=== PATIENT | male | born 1950 | race Caucasian/White ===

== ENCOUNTER → 2017-04-28 | Outpatient (CLI) | payer BC ==
--- NOTE | 2017-04-28 10:49 | XR ---
EXAMINATION TYPE: XR Hip Complete RT DATE OF EXAM: 04/28/2017 COMPARISON: NONE HISTORY: Pain right hip previous prosthesis placement TECHNIQUE: 2 view right hip FINDINGS: There is a right hip prosthesis with acetabular component. No acute fractures are evident. Joint appears normally oriented. No suspicious lucency adjacent to the prosthesis is evident. IMPRESSION: 1. No acute osseous abnormality right hip
== END | disposition home or self-care (01) ==
LOC: RADXRMAIN 09:36
PROVIDERS: ATTEND Physician Assistant
DX: M25.551 Pain in right hip (principal)
CPT/HCPCS: 73502

== ENCOUNTER → 2019-03-01 | Outpatient (CLI) | payer BC ==
--- NOTE | 2019-03-01 10:54 | ECHOF ---
Referral Reason:R00.2 abnormal heart beat MEASUREMENTS -------- HEIGHT: 188.0 cm WEIGHT: 108.9 kg BP: RVIDd: 3.6 cm (< 3.3) IVSd: 1.1 cm (0.6 - 1.1) LVIDd: 4.9 cm (3.9 - 5.3) LVPWd: 1.0 cm (0.6 - 1.1) IVSs: 1.4 cm LVIDs: 4.1 cm LVPWs: 0.9 cm LA Diam: 4.2 cm (2.7 - 3.8) LAESV Index (A-L): 31.96 ml/m Ao Diam: 2.8 cm (2.0 - 3.7) AV Cusp: 2.1 cm (1.5 - 2.6) LA Diam: 3.7 cm (2.7 - 3.8) MV EXCURSION: 24.642 mm (> 18.000) MV EF SLOPE: 114 mm/s (70 - 150) EPSS: 0.4 cm MV E Kevin: 0.64 m/s MV DecT: 245 ms MV A Kevin: 0.51 m/s MV E/A Ratio: 1.26 RAP: 5.00 mmHg RVSP: 29.11 mmHg FINDINGS -------- Sinus rhythm. This was a technically adequate study. The left ventricular size is normal. There is mild concentric left ventricular hypertrophy. Overa ll left ventricular systolic function is normal with, an EF between 55 - 60 %. The diastolic fillin g pattern is normal for the age of the patient {E/E'}. The right ventricle is normal in size. LA is midly dilated 29-33ml/m2. The right atrium is mildly enlarged. Aortic valve is trileaflet and is mildly thickened. There is no evidence of aortic regurgitation. The mitral valve leaflets are mildly thickened. Mild mitral regurgitation is present. Mild tricuspid regurgitation present. Right ventricular systolic pressure is normal at < 35 mmHg. The right ventricular systolic pressure, as measured by Doppler, is 29.11mmHg. Trace/mild (physiologic) pulmonic regurgitation. The aortic root size is normal. There is no pericardial effusion. CONCLUSIONS -------- 1. Sinus rhythm. 2. There is mild concentric left ventricular hypertrophy. 3. Overall left ventricular systolic function is normal with, an EF between 55 - 60 %. 4. The diastolic filling pattern is normal for the age of the patient {E/E'} 5. LA is midly dilated 29-33ml/m2. 6. The right atrium is mildly enlarged. 7. Aortic valve is trileaflet and is mildly thickened. 8. Mild mitral regurgitation is present. 9. Mild tricuspid regurgitation present. 10. Right ventricular systolic pressure is normal at < 35 mmHg. 11. Trace/mild (physiologic) pulmonic regurgitation. 12. There is no pericardial effusion. MINERAL TECHNOLOGIST: Mica Morales RDCS
--- NOTE | 2019-03-02 05:00 | EST ---
EXERCISE STRESS DATE OF SERVICE: 03/01/2019 AGE: 68 SEX: Male HT: 75" WT: 240 pounds PROTOCOL: Elia STAGE: III DURATION OF EXERCISE: 8 minutes 32 seconds HEART RATE REST: 97 BLOOD PRESSURE REST: 174/99 MAXIMUM HEART RATE ACHIEVED: 128 MAXIMUM BLOOD PRESSURE: 215/107 85% MPHR: 128 100% MPHR: 150 METS: 8.1 INDICATIONS: Abnormal heart beat. CLINICAL INFORMATION: Baseline rhythm is sinus mechanism, rate 59, right axis deviation, poor R progression. Baseline blood pressure 146/84 mmHg. Patient exercised on Elia protocol for 8 minute 32 seconds reaching peak rate of 128 beats per minute which is equal to 85% maximum predicted heart rate. Peak blood pressure 215/107 mmHg. Test was terminated secondary to fatigue. There was no chest pain. Electrocardiograph monitoring revealed rare PACs. There was no evidence of diagnostic ischemic ST deviation. CONCLUSION: 1. Good exercise tolerance with rare PACS. 2. Normal electrocardiograph response to exercise with no evidence of exercise induced ischemia. MMODL / IJN: [id number] /
== END | disposition home or self-care (01) ==
LOC: RADNMMAIN 08:08
PROVIDERS: ATTEND Internal Medicine
DX: I08.3 Combined rheumatic disorders of mitral, aortic and tricuspid valves (principal); R00.8 Other abnormalities of heart beat
CPT/HCPCS: 93017; 93306

== ENCOUNTER → 2019-09-16 | Outpatient (CLI) | payer BC ==
--- NOTE | 2019-09-16 09:08 | US ---
EXAMINATION TYPE: US liver DATE OF EXAM: 09/16/2019 COMPARISON: NONE CLINICAL HISTORY: R16 Hepatomegaly. MD felt enlarged liver on physical exam. No complaints by patient . EXAM MEASUREMENTS: Liver Length: 17.1 cm Gallbladder Wall: 0.1 cm CBD: 0.3 cm Right Kidney: 13.5 x 5.9 x 4.7 cm Pancreas: Obscured by bowel gas Liver: Increased attenuation Gallbladder: wnl, with fold Evidence for sonographic Nair's sign: No CBD: wnl Right Kidney: No hydronephrosis or masses seen IMPRESSION: Exam is limited. Findings may be indicative of hepatic steatosis, measurement obtained by the technologist may under represent size, there may be hepatic enlargement
== END | disposition home or self-care (01) ==
LOC: RADUSWWP 07:04
PROVIDERS: ATTEND Internal Medicine
DX: R16.0 Hepatomegaly, not elsewhere classified (principal)
CPT/HCPCS: 76705

== ENCOUNTER → 2021-11-02 | Outpatient (CLI) | payer MEDICAID ==
[~2021-11-02] MED LIST: BEBTELOVIMAB (EUA) 175 MG/2 ML VIAL IV ONE; SODIUM CHLORIDE 0.9% 500 ML 500 ML in EMPTY BAG 1 BAG IV PRN
[2021-11-02 12:42] VITALS: BP 168/90; PULSE 67; RESP 16; TEMP 97.6
== END ==
LOC: PROCWHC3 12:35
PROVIDERS: ATTEND Nurse Practitioner Adult Health
DX: U07.1 COVID-19 (principal); Q89.01 Asplenia (congenital); Z88.0 Allergy status to penicillin
CPT/HCPCS: Q0222; M0222

== ENCOUNTER → 2022-07-14 | Outpatient (CLI) | payer MEDICAID ==
[2022-07-14 15:03] LABS: ALT 38 U/L (10-49); AST 35 U/L (14-35); LDL Cholesterol,Calculated 43.5 mg/dL (0.0-131.0)
== END | disposition home or self-care (01) ==
LOC: LABWHC1 08:08
PROVIDERS: ATTEND Internal Medicine Cardiovascular Disease
DX: E78.2 Mixed hyperlipidemia (principal)
CPT/HCPCS: 36415; 80061; 84450; 84460

== ENCOUNTER 2022-08-30 16:55 | Emergency (ER) | payer MEDICAID ==
[2022-08-30 17:02] VITALS: BP 153/86; PULSE 67; RESP 18; TEMP 97.9
--- NOTE | 2022-08-30 20:03 | US ---
EXAMINATION TYPE: US lower ext pseudo artery RT DATE OF EXAM: 08/30/2022 COMPARISON: NONE CLINICAL INDICATION: Male, 72 years old with history of s/p cath 05/2 r/o pseudoaneurysm RLE; Pain. No palpable or discoloration. EXAM PERFORMED: Grayscale and color Doppler duplex imaging performed of the groin, post cardiac pao ter to assess for pseudoaneurysm. SIDE PERFORMED: Right Color and Waveform Doppler performed to assess for the presence of pseudoaneurysm; Is there ultrasound evidence of a pseudoaneurysm: No Is there evidence of AV shunting: No Is there a fluid collection present: No Case was discussed the technical training instructor. No definite pseudoaneurysm identified. Images document the ar terial system as well as portions of the venous system. Case was discussed with the emergency room PA by Dr. Charles at the time of interpretation. In the ab sence of clinically suspicious findings, patient can return in the morning for rescanning and documen tation. This may be useful to have a radiologist present at the time of scanning. IMPRESSION: 1. No definite pseudoaneurysm. 2. Recommend follow-up scan in the morning to reevaluate to confirm and document no pseudoaneurysm pr esent.
--- NOTE | 2022-08-30 20:17 | ED ---
General Adult HPI - General Chief complaint: Extremity Injury, Lower Stated complaint: pain in lower extremities Time Seen by Provider: 08/30/22 18:01 Source: family Mode of arrival: ambulatory Limitations: no limitations - History of Present Illness Initial comments: 72-year-old male with past medical history significant for S/PE cardiac catheterization on 07/19 presenting to the ED with a chief complaint of right groin pain. Patient states over the past few days has had intermittent pain to the right groin. Patient denies any known injury. She also notes history of sciatica and notes pain in the right groin is somewhat consistent with history of this. Denies chest pain shortness breath. No other complaints. - Related Data Previous Rx's Medication Instructions Recorded Aspirin 81 mg PO DAILY #90 tab 07/01/22 Atorvastatin [Lipitor] 80 mg PO HS #90 tab 07/01/22 Clopidogrel [Plavix] 75 mg PO DAILY #90 tab 07/01/22 Losartan [Cozaar] 25 mg PO HS #90 tab 07/01/22 Metoprolol Tartrate [Lopressor] 25 mg PO BID #180 tab 07/01/22 Nitroglycerin Sl Tabs [Nitrostat] 0.4 mg SUBLINGUAL Q5M PRN #100 tab 07/01/22 Allergies Allergy/AdvReac Type Severity Reaction Status Date / Time Penicillins Allergy Unknown Verified 08/30/22 16:57 Review of Systems ROS Statement: Those systems with pertinent positive or pertinent negative responses have been documented in the HPI. ROS Other: All systems not noted in ROS Statement are negative. Past Medical History Past Medical History: Hyperlipidemia, Hypertension, Myocardial Infarction ([place]) Additional Past Medical History / Comment(s): back pain History of Any Multi-Drug Resistant Organisms: None Reported Past Surgical History: Heart Catheterization With Stent, Joint Replacement, Orthopedic Surgery Additional Past Surgical History / Comment(s): spleen removed Past Anesthesia/Blood Transfusion Reactions: No Reported Reaction Past Psychological History: No Psychological Hx Reported Smoking Status: Never smoker Past Alcohol Use History: Occasional Past Drug Use History: None Reported General Exam Limitations: no limitations General appearance: alert, in no apparent distress Head exam: Present: atraumatic, normocephalic Eye exam: Present: normal appearance Respiratory exam: Present: normal lung sounds bilaterally Cardiovascular Exam: Present: regular rate, normal rhythm GI/Abdominal exam: Present: soft exam: Present: normal inspection, other (Catheterization site shows no redness, warmth, erythema. No tenderness to palpation. No significant swe lling.) Neurological exam: Present: alert, oriented X3 Psychiatric exam: Present: normal affect, normal mood Skin exam: Present: warm, dry Course Vital Signs 08/30/22 16:58 Temperature 97.9 F Pulse Rate 67 Respiratory 18 Rate Blood Pressure 153/86 O2 Sat by Pulse 96 Oximetry Medical Decision Making - Medical Decision Making Was pt. sent in by a medical professional or institution (DELFIN Moreno, SHARED SERVICES REPRESENTATIVE, urgent care, hospital, or shelter...) When possible be specific @ -No Did you speak to anyone other than the patient for history (EMS, parent, family, police, friend...)? What history was obtained from this source @ -No Did you review nursing and triage notes (agree or disagree)? Why? @ -I reviewed and agree with nursing and triage notes Were old charts reviewed (outside hosp., previous admission, EMS record, old EKG, old radiological studies, urgent care reports/EKG's, shelter records)? Report findings @ -Review of previous chart showed cath on 07/19 Differential Diagnosis (chest pain, altered mental status, abdominal pain women, abdominal pain men, vaginal bleeding, weakness, fever, dyspnea, syncope, headache, dizziness, GI bleed, back pain, seizure, CVA, palpatations, mental health, musculoskeletal)? @ -And echo, pseudoaneurysm. This is not meant to be an all-inclusive list EKG interpreted by me (3pts min.). @ -None X-rays interpreted by me (1pt min.). @ -None done CT interpreted by me (1pt min.). @ -None done U/S interpreted by me (1pt. min.). @ -Ultrasound showed no evidence of pseudoaneurysm. What testing was considered but not performed or refused? (CT, X-rays, U/S, labs)? Why? @ -None What meds were considered but not given or refused? Why? @ -None Did you discuss the management of the patient with other professionals (professionals i.e. DELFIN Moreno, SHARED SERVICES REPRESENTATIVE, lab, RT, psych nurse, social media editor, assembler flexible leads, teacher, disability hearing officer, shoe parts caser)? Give summary @ -No Was smoking cessation discussed for >3mins.? @ -No Was critical care preformed (if so, how long)? @ -No Were there social determinants of health that impacted care today? How? (Homelessness, low income, unemployed, alcoholism, drug addiction, transportation, low edu. Level, literacy, decrease access to med. care, nursing home, rehab)? @ -No Was there de-escalation of care discussed even if they declined (Discuss DNR or withdrawal of care, Hospice)? DNR status @ -No What co-morbidities impacted this encounter? (DM, HTN, Smoking, COPD, CAD, Cancer, CVA, ARF, Chemo, Hep., AIDS, mental health diagnosis, sleep apnea, morbid obesity)? @ -History of [place] S/P cath Was patient admitted / discharged? Hospital course, mention meds given and route, prescriptions, significant lab abnormalities, going to OR and other pertinent info. @ -Discharge. Spoke with of radiology who advises at this time poor image quality however unlikely pseudoaneurysm. He recommends repeat imaging in the morning. At this time pain is well-controlled. Patient discharged home with prescription for ultrasound to follow with cardiology. Stress return precautions with patient verbalizes agreement. Undiagnosed new problem with uncertain prognosis? @ -No Drug Therapy requiring intensive monitoring for toxicity (Heparin, Nitro, Insulin, Cardizem)? @ -No Were any procedures done? @ -No Diagnosis/symptom? @ -Right groin pain Acute, or Chronic, or Acute on Chronic? @ -Acute Uncomplicated (without systemic symptoms) or Complicated (systemic symptoms)? @ -Uncomplicated Side effects of treatment? @ -No Exacerbation, Progression, or Severe Exacerbation? @ -No Poses a threat to life or bodily function? How? (Chest pain, [place], [place], pneumonia, PE, COPD, DKA, ARF, appy, cholecystitis, CVA, Diverticulitis, Homicidal, Suicidal, threat to staff... and all critical care pts) @ -No Disposition Clinical Impression: Groin pain Disposition: HOME SELF-CARE Condition: Good Additional Instructions: Please return to the Emergency Department if symptoms worsen or any other concerns. Is patient prescribed a controlled substance at d/c from ED?: No Referrals: Werner Michelle MD [Primary Care Provider] - 1-2 days Time of Disposition: 20:18
== END 2022-08-30 20:19 | disposition home or self-care (01) ==
LOC: EC 16:55
DX: R10.30 Lower abdominal pain, unspecified (principal); M79.604 Pain in right leg; E78.5 Hyperlipidemia, unspecified; I10 Essential (primary) hypertension; I25.2 Old myocardial infarction; Z88.0 Allergy status to penicillin; Z79.82 Long term (current) use of aspirin; Z79.899 Other long term (current) drug therapy; Z79.02 Long term (current) use of antithrombotics/antiplatelets
CPT/HCPCS: 93975; 99284

== ENCOUNTER → 2022-08-31 | Outpatient (CLI) | payer MEDICAID ==
--- NOTE | 2022-08-31 10:49 | US ---
EXAMINATION TYPE: US lower ext pseudo artery RT DATE OF EXAM: 08/31/2022 COMPARISON: US 08/30/22 CLINICAL INDICATION: Male, 72 years old with history of I72.9 ANEURYSM OF UNSPECIFIED SITE; Patient h ad heart cath 06/29/2022. Patient had some pain in right groin yesterday. EXAM PERFORMED: Grayscale and color Doppler duplex imaging performed of the groin, post cardiac pao ter to assess for pseudoaneurysm. SIDE PERFORMED: Right Color and Waveform Doppler performed to assess for the presence of pseudoaneurysm; Is there ultrasound evidence of a pseudoaneurysm: No evidence of pseudoaneurysm. Is there evidence of AV shunting: No Is there a fluid collection present: No IMPRESSION: No evidence of pseudoaneurysm at this time.
== END | disposition home or self-care (01) ==
LOC: LABWHC1 09:29
PROVIDERS: ATTEND Student in an Organized Health Care Education/Training Program
DX: I72.8 Aneurysm of other specified arteries (principal)
CPT/HCPCS: 93975

== ENCOUNTER 2023-01-29 02:37 | Emergency (ER) | payer MEDICAID ==
[2023-01-29 03:18] LABS: Basophils % (A) 0 %; Eosinophils % (A) 0 %; HCT 47.7 % (39.0-53.0); HGB 15.5 gm/dL (13.0-17.5); Lymphocytes # (A) 1.2 k/uL (1.0-4.8); Lymphocytes % (A) 11 %; MCH 31.7 pg (25.0-35.0); MCHC 32.5 g/dL (31.0-37.0); MCV 97.6 fL (80.0-100.0); Mean Platelet Volume 7.9; Monocytes # (A) 0.4 k/uL (0-1.0); Monocytes % (A) 3 %; Neutrophils # (A) 9.7 k/uL (1.3-7.7); Neutrophils % (A) 85 %; Platelet Count 135 k/uL (150-450); RBC 4.89 m/uL (4.30-5.90); RDW 14.8 % (11.5-15.5); WBC 11.4 k/uL (3.8-10.6)
[2023-01-29 04:09] LABS: Amorphous Sediment,Urine Rare /hpf; Mucus,Urine Rare /hpf; RBC,Urine 2 /hpf (0-5); Squamous Epithelial Cell,Urine <1 /hpf (0-4); WBC,Urine 1 /hpf (0-5)
[2023-01-29 04:11] LABS: ALT 65 U/L (4-49); African American GFR (CKD) >90 (>60 ml/min/1.73 sqM); Anion Gap 10 mmol/L; Blood Urea Nitrogen 29 mg/dL (9-20); Calcium 8.9 mg/dL (8.4-10.2); Carbon Dioxide 19 mmol/L (22-30); Chloride 105 mmol/L (98-107); Glucose 104 mg/dL (74-99); Non-African American GFR(CKD) >90 (>60 ml/min/1.73 sqM); Sodium 134 mmol/L (137-145); Total Bilirubin 1.8 mg/dL (0.2-1.3)
[2023-01-29 04:13] LABS: Appearance,Urine Clear (Clear); Bilirubin,Urine Negative (Negative); Blood,Urine Negative (Negative); Color,Urine Yellow; Glucose,Urine (UA) Negative (Negative); Ketones,Urine Negative (Negative); Leukocyte Esterase,Urine Negative (Negative); Nitrite,Urine Negative (Negative); Protein,Urine 1+ (Negative); Specific Gravity,Urine 1.005 (1.001-1.035); Urobilinogen,Urine 0.2 mg/dL (<2.0)
--- NOTE | 2023-01-29 04:14 | ED ---
Fall HPI <Yoni Mobley - Last Filed: 01/29/23 09:16> - General Source: EMS Mode of arrival: EMS <Erendira Carroll - Last Filed: 01/30/23 04:13> - General Chief Complaint: Fall Stated Complaint: Fall Time Seen by Provider: 01/29/23 02:46 - History of Present Illness Initial Comments: 72-year-old male presenting for evaluation after a fall at home. Patient was trying to get up from his chair when he slipped and fell onto the ground. He reports no head injury. states that she did not witness fall. She states that she has noticed progressive confusion and weakness. History is somewhat limited secondary to patient's confusion. He denied any headache, neck pain, chest pain, difficulty breathing, abdominal pain. (Erendira Carroll) - Related Data Previous Rx's Medication Instructions Recorded Aspirin 81 mg PO DAILY #90 tab 07/01/22 Atorvastatin [Lipitor] 80 mg PO HS #90 tab 07/01/22 Clopidogrel [Plavix] 75 mg PO DAILY #90 tab 07/01/22 Losartan [Cozaar] 25 mg PO HS #90 tab 07/01/22 Metoprolol Tartrate [Lopressor] 25 mg PO BID #180 tab 07/01/22 Nitroglycerin Sl Tabs [Nitrostat] 0.4 mg SUBLINGUAL Q5M PRN #100 tab 07/01/22 Allergies Allergy/AdvReac Type Severity Reaction Status Date / Time Penicillins Allergy Unknown Verified 08/30/22 16:57 Review of Systems ROS Other: All systems not noted in ROS Statement are negative. <Yoni Mobley - Last Filed: 01/29/23 09:16> ROS Other: All systems not noted in ROS Statement are negative. <Erendira Carroll - Last Filed: 01/30/23 04:13> ROS Statement: Those systems with pertinent positive or pertinent negative responses have been documented in the HPI. Past Medical History Past Medical History: Hyperlipidemia, Hypertension, Myocardial Infarction (MT) Additional Past Medical History / Comment(s): back pain History of Any Multi-Drug Resistant Organisms: None Reported Past Surgical History: Heart Catheterization With Stent, Joint Replacement, Orthopedic Surgery Additional Past Surgical History / Comment(s): spleen removed Past Anesthesia/Blood Transfusion Reactions: No Reported Reaction Past Psychological History: No Psychological Hx Reported Smoking Status: Never smoker Past Alcohol Use History: Occasional Past Drug Use History: None Reported <Erendira Carroll - Last Filed: 01/30/23 04:13> General Exam Limitations: altered mental status General appearance: alert, in no apparent distress Head exam: Present: atraumatic, normocephalic, normal inspection Eye exam: Present: normal appearance, PERRL, EOMI Neck exam: Present: normal inspection Respiratory exam: Present: normal lung sounds bilaterally. Absent: respiratory distress, wheezes, rales, rhonchi, stridor Cardiovascular Exam: Present: regular rate, normal rhythm, normal heart sounds. Absent: systolic murmur, diastolic murmur, rubs, gallop, clicks Neurological exam: Present: alert, altered Psychiatric exam: Present: normal affect, normal mood Skin exam: Present: warm, dry, intact, normal color. Absent: rash <Erendira Carroll - Last Filed: 01/30/23 04:13> Course Vital Signs 01/29/23 01/29/23 01/29/23 02:41 05:58 06:00 Temperature 98.1 F Pulse Rate 85 72 80 Respiratory 18 16 18 Rate Blood Pressure 131/72 112/74 108/63 O2 Sat by Pulse 98 98 95 Oximetry 01/29/23 01/29/23 07:30 09:38 Temperature 97.7 F 97.9 F Pulse Rate 79 78 Respiratory 16 16 Rate Blood Pressure 114/66 112/82 O2 Sat by Pulse 95 96 Oximetry Medical Decision Making - Lab Data Result diagrams: 01/29/23 02:50 01/29/23 03:48 <Yoni Mobley - Last Filed: 01/29/23 09:16> - Lab Data Result diagrams: 01/29/23 02:50 01/29/23 03:48 <Erendira Carroll - Last Filed: 01/30/23 04:13> - Medical Decision Making Was patient admitted / discharged? Hospital course, mention meds given and route, prescriptions, significant lab abnormalities, going to OR and other pertinent info. @ -This patient was signed out to me at 7 AM. He were awaiting CAT scan which was ordered considerably earlier but there was no read done. Patient's CT of the brain and C-spine as well as the lumbar spine were interpreted by myself I saw no acute abnormality. Patient was able to get out of bed and ambulate quite well and wanted to go home he had no further complaints. Undiagnosed new problem with uncertain prognosis? @ -No Drug Therapy requiring intensive monitoring for toxicity (Heparin, Nitro, Insulin, Cardizem)? @ -No Were any procedures done? @ -No Diagnosis/symptom? @ -Fall Acute, or Chronic, or Acute on Chronic? @ -Acute Uncomplicated (without systemic symptoms) or Complicated (systemic symptoms)? @ -Complicated Side effects of treatment? @ -No Exacerbation, Progression, or Severe Exacerbation? @ -No Poses a threat to life or bodily function? How? (Chest pain, USA, MT, pneumonia, PE, COPD, DKA, ARF, appy, cholecystitis, CVA, Diverticulitis, Homicidal, Suicidal, threat to staff... and all critical care pts) @ -No Diagnosis/symptom? @ -Back pain Acute, or Chronic, or Acute on Chronic? @ -Acute Uncomplicated (without systemic symptoms) or Complicated (systemic symptoms)? @ -Complicated Side effects of treatment? @ -none Exacerbation, Progression, or Severe Exacerbation] @ -no Poses a threat to life or bodily function? @ -no (Yoni Mobley) Was pt. sent in by a medical professional or institution (, PA, RESPIRATORY THERAPY TECHNICIAN, urgent care, hospital, or fci...) When possible be specific @ -[No] Did you speak to anyone other than the patient for history (EMS, parent, family, police, friend...)? What history was obtained from this source @ -History supplemented by at bedside Did you review nursing and triage notes (agree or disagree)? Why? @ -[I reviewed and agree with nursing and triage notes] Were old charts reviewed (outside hosp., previous admission, EMS record, old EKG, old radiological studies, urgent care reports/EKG's, fci records)? Report findings @ -[No old charts were reviewed] Differential Diagnosis (chest pain, altered mental status, abdominal pain women, abdominal pain men, vaginal bleeding, weakness, fever, dyspnea, syncope, headache, dizziness, GI bleed, back pain, seizure, CVA, palpatations, mental health, musculoskeletal)? @ -MDM Differential Weakness: Hypoglycemia, shock, sepsis, hyponatremia, anemia, infection, MT, ETOH, adverse medicine reaction, overdose, stroke. ... This is not meant to be an all- inclusive list EKG interpreted by me (3pts min.). @ -[As above] U/S interpreted by me (1pt. min.). @ -[None done] What testing was considered but not performed or refused? (CT, X-rays, U/S, labs)? Why? @ -[None] What meds were considered but not given or refused? Why? @ -[None] Did you discuss the management of the patient with other professionals (kris camacho i.e. , PA, RESPIRATORY THERAPY TECHNICIAN, lab, RT, psych nurse, director social, operations specialist, teacher, senior compliance officer, case operator)? Give summary @ -[No] Was smoking cessation discussed for >3mins.? @ -[No] Was critical care preformed (if so, how long)? @ -[No] Were there social determinants of health that impacted care today? How? (Homelessness, low income, unemployed, alcoholism, drug addiction, tr ansportation, low edu. Level, literacy, decrease access to med. care, [facility], rehab)? @ -[No] Was there de-escalation of care discussed even if they declined (Discuss DNR or withdrawal of care, Hospice)? DNR status @ -[No] What co-morbidities impacted this encounter? (DM, HTN, Smoking, COPD, CAD, Cancer, CVA, ARF, Chemo, Hep., AIDS, mental health diagnosis, sleep apnea, morbid obesity)? @ -[None] Was patient admitted / discharged? Hospital course, mention meds given and route, prescriptions, significant lab abnormalities, going to OR and other pertinent info. @ -72-year-old male presenting for evaluation post fall. states that he has been somewhat more weak and confused. History and physical exam were conducted. Troponin is positive at 0.100, patient has history of elevated troponin. No sign of UTI. CT of the brain cervical spine and lumbar spine is pending at this time. Patient is signed out to my attending for further management and disposition. (Erendira Carroll) - Lab Data Lab Results 01/29/23 01/29/23 01/29/23 Range/Units 02:50 02:50 02:50 WBC 11.4 H (3.8-10.6) k/uL RBC 4.89 (4.30-5.90) m/uL Hgb 15.5 (13.0-17.5) gm/dL Hct 47.7 (39.0-53.0) % MCV 97.6 (80.0-100.0) fL MCH 31.7 (25.0-35.0) pg MCHC 32.5 (31.0-37.0) g/dL RDW 14.8 (11.5-15.5) % Plt Count 135 L (150-450) k/uL MPV 7.9 Neutrophils % 85 % Lymphocytes % 11 % Monocytes % 3 % Eosinophils % 0 % Basophils % 0 % Neutrophils # 9.7 H (1.3-7.7) k/uL Lymphocytes # 1.2 (1.0-4.8) k/uL Monocytes # 0.4 (0-1.0) k/uL Eosinophils # 0.0 (0-0.7) k/uL Basophils # 0.0 (0-0.2) k/uL PT (10.0-12.5) sec INR (<1.2) APTT (22.0-30.0) sec Sodium (137-145) mmol/L Potassium (3.5-5.1) mmol/L Chloride (98-107) mmol/L Carbon Dioxide (22-30) mmol/L Anion Gap mmol/L BUN (9-20) mg/dL Creatinine (0.66-1.25) mg/dL Est GFR (CKD-EPI)AfAm (>60 ml/min/1.73 sqM) Est GFR (CKD-EPI)NonAf (>60 ml/min/1.73 sqM) Glucose (74-99) mg/dL Lactic Ac Sepsis Rflx Plasma Lactic Acid Charbel 2.2 H* (0.7-2.0) mmol/L Calcium (8.4-10.2) mg/dL Total Bilirubin (0.2-1.3) mg/dL AST (17-59) U/L ALT (4-49) U/L Alkaline Phosphatase (38-126) U/L Troponin I (0.000-0.034) ng/mL Total Protein (6.3-8.2) g/dL Albumin (3.5-5.0) g/dL Urine Color Yellow Urine Appearance Clear (Clear) Urine pH 6.0 (5.0-8.0) Ur Specific [place] 1.005 (1.001-1.035) Urine Protein 1+ H (Negative) Urine Glucose (UA) Negative (Negative) Urine Ketones Negative (Negative) Urine Blood Negative (Negative) Urine Nitrite Negative (Negative) Urine Bilirubin Negative (Negative) Urine Urobilinogen 0.2 (<2.0) mg/dL Ur Leukocyte Esterase Negative (Negative) Urine RBC 2 (0-5) /hpf Urine WBC 1 (0-5) /hpf Ur Squamous Epith Cells <1 (0-4) /hpf Amorphous Sediment Rare H (None) /hpf Urine Mucus Rare H (None) /hpf 01/29/23 01/29/23 01/29/23 Range/Units 03:46 03:48 03:48 WBC (3.8-10.6) k/uL RBC (4.30-5.90) m/uL Hgb (13.0-17.5) gm/dL Hct (39.0-53.0) % MCV (80.0-100.0) fL MCH (25.0-35.0) pg MCHC (31.0-37.0) g/dL RDW (11.5-15.5) % Plt Count (150-450) k/uL MPV Neutrophils % % Lymphocytes % % Monocytes % % Eosinophils % % Basophils % % Neutrophils # (1.3-7.7) k/uL Lymphocytes # (1.0-4.8) k/uL Monocytes # (0-1.0) k/uL Eosinophils # (0-0.7) k/uL Basophils # (0-0.2) k/uL PT (10.0-12.5) sec INR (<1.2) APTT (22.0-30.0) sec Sodium 134 L (137-145) mmol/L Potassium 4.1 (3.5-5.1) mmol/L Chloride 105 (98-107) mmol/L Carbon Dioxide 19 L (22-30) mmol/L Anion Gap 10 mmol/L BUN 29 H (9-20) mg/dL Creatinine 0.74 (0.66-1.25) mg/dL Est GFR (CKD-EPI)AfAm >90 (>60 ml/min/1.73 sqM) Est GFR (CKD-EPI)NonAf >90 (>60 ml/min/1.73 sqM) Glucose 104 H (74-99) mg/dL Lactic Ac Sepsis Rflx Y Plasma Lactic Acid [place] (0.7-2.0) mmol/L Calcium 8.9 (8.4-10.2) mg/dL Total Bilirubin 1.8 H (0.2-1.3) mg/dL AST 64 H (17-59) U/L ALT 65 H (4-49) U/L Alkaline Phosphatase 63 (38-126) U/L Troponin I 0.100 H* (0.000-0.034) ng/mL Total Protein 6.8 (6.3-8.2) g/dL Albumin 3.8 (3.5-5.0) g/dL Urine Color Urine Appearance (Clear) Urine pH (5.0-8.0) Ur Specific [place] (1.001-1.035) Urine Protein (Negative) Urine Glucose (UA) (Negative) Urine Ketones (Negative) Urine Blood (Negative) Urine Nitrite (Negative) Urine Bilirubin (Negative) Urine Urobilinogen (<2.0) mg/dL Ur Leukocyte Esterase (Negative) Urine RBC (0-5) /hpf Urine WBC (0-5) /hpf Ur Squamous Epith Cells (0-4) /hpf Amorphous Sediment (None) /hpf Urine Mucus (None) /hpf 01/29/23 01/29/23 Range/Units 03:52 06:51 WBC (3.8-10.6) k/uL RBC (4.30-5.90) m/uL Hgb (13.0-17.5) gm/dL Hct (39.0-53.0) % MCV (80.0-100.0) fL MCH (25.0-35.0) pg MCHC (31.0-37.0) g/dL RDW (11.5-15.5) % Plt Count (150-450) k/uL MPV Neutrophils % % Lymphocytes % % Monocytes % % Eosinophils % % Basophils % % Neutrophils # (1.3-7.7) k/uL Lymphocytes # (1.0-4.8) k/uL Monocytes # (0-1.0) k/uL Eosinophils # (0-0.7) k/uL Basophils # (0-0.2) k/uL PT 12.8 H (10.0-12.5) sec INR 1.2 H (<1.2) APTT 20.5 L (22.0-30.0) sec Sodium (137-145) mmol/L Potassium (3.5-5.1) mmol/L Chloride (98-107) mmol/L Carbon Dioxide (22-30) mmol/L Anion Gap mmol/L BUN (9-20) mg/dL Creatinine (0.66-1.25) mg/dL Est GFR (CKD-EPI)AfAm (>60 ml/min/1.73 sqM) Est GFR (CKD-EPI)NonAf (>60 ml/min/1.73 sqM) Glucose (74-99) mg/dL Lactic Ac Sepsis Rflx Plasma Lactic Acid [place] 1.6 (0.7-2.0) mmol/L Calcium (8.4-10.2) mg/dL Total Bilirubin (0.2-1.3) mg/dL AST (17-59) U/L ALT (4-49) U/L Alkaline Phosphatase (38-126) U/L Troponin I (0.000-0.034) ng/mL Total Protein (6.3-8.2) g/dL Albumin (3.5-5.0) g/dL Urine Color Urine Appearance (Clear) Urine pH (5.0-8.0) Ur Specific [place] (1.001-1.035) Urine Protein (Negative) Urine Glucose (UA) (Negative) Urine Ketones (Negative) Urine Blood (Negative) Urine Nitrite (Negative) Urine Bilirubin (Negative) Urine Urobilinogen (<2.0) mg/dL Ur Leukocyte Esterase (Negative) Urine RBC (0-5) /hpf Urine WBC (0-5) /hpf Ur Squamous Epith Cells (0-4) /hpf Amorphous Sediment (None) /hpf Urine Mucus (None) /hpf Disposition Is patient prescribed a controlled substance at d/c from ED?: No Time of Disposition: 09:19 <Yoni Mobley - Last Filed: 01/29/23 09:16> <Erendira Carroll - Last Filed: 01/30/23 04:13> Clinical Impression: Fall, Back pain Disposition: HOME SELF-CARE Instructions (If sedation given, give patient instructions): Fall Prevention for Older Adults (ED), Back Pain (ED) Referrals: Adiel Rouse MD [Primary Care Provider] - 1-2 days
[2023-01-29 04:22] LABS: AST 64 U/L (17-59); Albumin 3.8 g/dL (3.5-5.0); Alkaline Phosphatase 63 U/L (38-126); Potassium 4.1 mmol/L (3.5-5.1); Total Protein 6.8 g/dL (6.3-8.2)
[2023-01-29 04:33] LABS: INR 1.2 (<1.2); Partial Thromboplastin Time 20.5 sec (22.0-30.0); Prothrombin Time 12.8 sec (10.0-12.5)
[2023-01-29] MEDS ORDERED: traMADol 50 MG TAB PO STA (05:48)
--- NOTE | 2023-01-29 07:52 | CT ---
EXAMINATION TYPE: CT brain yenifer virgen DATE OF EXAM: 01/29/2023 COMPARISON: None HISTORY: Fall CT DLP: 393.4 mGycm, Automated exposure control for dose reduction was used. CONTRAST: Patient injected with 0 mL of Isovue 300. CT of the brain is performed utilizing 3 mm thick sections through the posterior fossa and 3 mm thick sections through the remaining calvarium. Study is performed within 24 hours of arrival to the hospital. No abnormal hyperdensity is present to suggest an acute intracranial hemorrhage. No mass lesion is evident. No acute infarcts are evident. Ventricles and sulci are appropriate for the patient age. Paranasal sinuses and mastoid air cells within the [id number] are clear. IMPRESSIONS: 1. No acute intracranial process. CT cervical spine. COMPARISON: None CT of the cervical spine is performed in the axial plane at 2 mm thick sections. Reconstructed image s in the coronal, and sagittal plane are reviewed on the computer. No acute fractures are evident. There is subtle kyphosis centered at C4. No spondylolisthesis is evident. Some scoliosis is present. There is loss of disc height at C4-5 C5-6-7. Some posterior endplate spurring is present C5-6 with mi ld anterior thecal sac compression. Vertebral body heights are preserved. No spinal canal stenosis is evident. Right C4-5 foraminal stenosis present at bilateral C5-6 foraminal stenosis present. IMPRESSION: 1. Degenerative changes within the cervical spine. 2. No acute fractures evident.
[2023-01-29 07:57] VITALS: RESP 16
--- NOTE | 2023-01-29 07:59 | CT ---
EXAMINATION TYPE: CT lumbar spine wo con DATE OF EXAM: 01/29/2023 COMPARISON: None HISTORY: Fall, pain leg weakness CT DLP: 1222.4 mGycm CONTRAST: None TECHNIQUE: CT of the lumbar spine is performed on a spiral scan at 3 mm thick sections. Reconstructed images are performed in the coronal and sagittal planes. FINDINGS: Vacuum disc phenomenon is present at L3-4 L4-5 L5-S1. Disc space narrowing is present L3-4 and L5-S1. Vertebral body heights are preserved. There is retrolisthesis of L3 posterior internal 4. Remaining vertebral body alignment appears preserved. T12-L1: No focal disc herniation or significant disc bulge is evident. No spinal canal stenosis or neural foraminal stenosis is present. L1-L2: No focal disc herniation or significant disc bulge is evident. No spinal canal stenosis or n eural foraminal stenosis is present L2-L3: No focal disc herniation or significant disc bulge is evident. No spinal canal stenosis or n eural foraminal stenosis is present L3-L4: Disc uncovering is present without spinal canal stenosis. Severe left foraminal stenosis is pr esent. Moderate right foraminal stenosis is present L4-L5: Broad-based disc bulge is mild anterior thecal sac flattening. No AP spinal canal stenosis is present. Moderate left and right foraminal stenosis is present. L5-S1: No focal disc herniation or significant disc bulge is evident. No spinal canal stenosis. Mod erate left and right foraminal stenosis is present Incidental note is made of bibasilar infiltrates more so on the left. Correlate for atelectasis or pn eumonia and atypical pneumonia should be considered. IMPRESSION: 1. No acute osseous abnormality lumbar spine. 2. Retrolisthesis of L3 posterior on L4. 3. Degenerative disc changes L3-4 through L5-S1. 4. Foraminal stenosis mid to lower lumbar spine discussed above
[2023-01-29] MEDS ORDERED: KETOROLAC 15 MG/ML 1 ML VIAL IVP STA (08:35)
[2023-01-29] MEDS ORDERED: HYDROmorphone 0.5 MG/0.5 ML SYRINGE IVP STA (08:35)
[2023-01-29 09:48] VITALS: BP 112/82; PULSE 78; TEMP 97.9
== END 2023-01-29 09:40 | disposition home or self-care (01) ==
LOC: EC 02:37
DX: M54.9 Dorsalgia, unspecified (principal); I10 Essential (primary) hypertension; Z88.0 Allergy status to penicillin; W01.0XXA Fall on same level from slipping, tripping and stumbling without subsequent striking against object, initial encounter; Y92.009 Unspecified place in unspecified non-institutional (private) residence as the place of occurrence of the external cause
CPT/HCPCS: 99285 ×2; 96374 ×2; 96375 ×2; 36415; 93005; 80053; 83605; 84484; 85025; 85610; 85730; 81001; 72125; 72131; 70450; J1885; J1170